=== PATIENT | female | born 1970 | race Caucasian/White ===

== ENCOUNTER → 2019-03-25 | Outpatient (CLI) | payer OTHER ==
[2019-03-25 08:15] LABS: Basophils % (A) 1 %; Eosinophils # (A) 0.3 k/uL (0-0.7); Eosinophils % (A) 5 %; HCT 38.1 % (34.0-46.0); HGB 12.6 gm/dL (11.4-16.0); Lymphocytes % (A) 27 %; MCH 30.9 pg (25.0-35.0); MCV 93.6 fL (80.0-100.0); Mean Platelet Volume 6.7; Monocytes # (A) 0.4 k/uL (0-1.0); Monocytes % (A) 6 %; Neutrophils # (A) 4.3 k/uL (1.3-7.7); Neutrophils % (A) 60 %; Platelet Count 248 k/uL (150-450); RBC 4.08 m/uL (3.80-5.40); RDW 12.6 % (11.5-15.5); WBC 7.2 k/uL (3.8-10.6)
[2019-03-25 10:19] LABS: Erythrocyte Sedimentation Rate 9 mm/hr (0-20)
[2019-03-25 11:42] LABS: African American GFR (CKD) 131.7 (60.0-200.0); Albumin 4.2 g/dL (3.80-4.90); Albumin/Globulin Ratio 1.68 (1.60-3.17); Anion Gap 10.9 mmol/L (4.00-12.00); Calcium 8.9 mg/dL (8.7-10.3); Carbon Dioxide 25.1 mmol/L (21.6-31.8); Globulin 2.5 g/dL (1.6-3.3); Potassium 4.1 mmol/L (3.5-5.5); Total Bilirubin 0.4 mg/dL (0.2-1.2); Total Protein 6.7 g/dL (6.2-8.2)
== END | disposition home or self-care (01) ==
LOC: LABWHC1 06:41
PROVIDERS: ATTEND Internal Medicine Rheumatology
DX: H20.00 Unspecified acute and subacute iridocyclitis (principal); M51.36 Other intervertebral disc degeneration, lumbar region; Z15.89 Genetic susceptibility to other disease; Z51.81 Encounter for therapeutic drug level monitoring
CPT/HCPCS: 36415; 80053; 85025; 85652

== ENCOUNTER → 2021-12-14 | Outpatient (CLI) | payer OTHER ==
--- NOTE | 2021-12-18 17:10 | MM ---
Reason for Exam: Screening (asymptomatic). Last mammogram was performed 8 year(s) and 9 month(s) ago. Patient History: Menarche at age 10. First Full-Term at age 21. Hormonal Contraceptives, starting at age 30 for 21 years. Cyst Aspiration on the Right side. Maternal aunt had breast cancer, age 50. Risk Values: Deepali 5 year model risk: 1.0%. NCI Lifetime model risk: 8.5%. Prior Study Comparison: 11/16/2004 Bilateral Diagnostic Mammogram, [facility]. 06/25/2008 Bilateral Screening Mammogram, [facility]. 02/18/2013 Bilateral Screening Mammogram, [facility]. Tissue Density: The breast tissue is heterogeneously dense. This may lower the sensitivity of mammography. Findings: Analyzed By CAD. Isodense nodularity upper-outer quadrant right breast at the middle depth is more defined. Microcalcifications posterior upper outer quadrant right breast for which magnification views are recommended. Central nodularity left breast at a middle depth is more defined. 12:00 grouped microcalcifications left breast middle depth for which magnification views are recommended. Background diffuse punctate calcifications bilaterally. Overall Assessment: Incomplete: need additional imaging evaluation, BI-RAD 0 Management: Special View Mammogram of both breasts. 1. Additional views right breast to include mag CC, mag ML, and 3-D ML views (an area of nodularity as well as grouped microcalcifications located adjacent to each other). 2. Additional views left breast to include mag CC, mag lateral, spot 3-D MLO, and 3-D lateral views. 3. Targeted ultrasound of either breast for any persisting abnormality. Electronically signed and approved by: Cesar Aaron M.D. Radiologist
== END | disposition home or self-care (01) ==
LOC: RADMAMWWP 07:12
PROVIDERS: ATTEND Family Medicine
DX: Z12.31 Encounter for screening mammogram for malignant neoplasm of breast (principal); Z80.3 Family history of malignant neoplasm of breast
CPT/HCPCS: 77067

== ENCOUNTER → 2022-01-10 | Outpatient (CLI) | payer OTHER ==
--- NOTE | 2022-01-10 11:57 | USB ---
Patient History: Menarche at age 10. First Full-Term at age 21. Hormonal Contraceptives, starting at age 30 for 21 years. Cyst Aspiration on the Right side. Maternal aunt had breast cancer, age 50. Risk Values: Deepali 5 year model risk: 1.0%. NCI Lifetime model risk: 8.5%. Prior Study Comparison: 06/25/2008 Bilateral Screening Mammogram, [facility]. 02/18/2013 Bilateral Screening Mammogram, [facility]. 12/14/2021 Bilateral MG screening mammo w CAD, [facility]. Findings: Right breast: At the 9:00 position 8 cm from the nipple there is a hypoechoic area which may has some mild posterior wall enhancement. This area measures 0.3 x 0.2 x 0.4 cm. Short-term follow-up can be performed. At the 12:00 position 3 cm from the nipple there is a hypoechoic nodule measuring 0.7 x 0.6 x 0.7 cm. Biopsy is recommended. Left breast:At the 2:00 position 7 cm from nipple a duct or cluster of cysts may be present measuring 1.0 x 0.2 x 0.5 cm. This may correspond with the mammographic abnormality. Short-term follow-up is recommended. Overall Assessment: Suspicious, BI-RAD 4 Management: Ultrasound Core Biopsy of the right breast. A clinical breast exam by your physician is recommended on an annual basis and results should be correlated with mammographic findings. Patient should continue monthly self breast exam. Short-term follow-up of additional ultrasound findings in 6 months bilateral breast. Please also see mammographic report same date. Electronically signed and approved by: Ronaldo Styles D.O. Radiologis
--- NOTE | 2022-01-10 12:09 | MM ---
Reason for Exam: Additional evaluation requested from abnormal screening. Last screening mammogram was performed less than 1 month ago. Patient History: Menarche at age 10. First Full-Term at age 21. Hormonal Contraceptives, starting at age 30 for 21 years. Cyst Aspiration on the Right side. Maternal aunt had breast cancer, age 50. Risk Values: Deepali 5 year model risk: 1.0%. NCI Lifetime model risk: 8.5%. Prior Study Comparison: 11/16/2004 Bilateral Diagnostic Mammogram, [facility]. 06/25/2008 Bilateral Screening Mammogram, [facility]. 02/18/2013 Bilateral Screening Mammogram, [facility]. 12/14/2021 Bilateral MG screening mammo w CAD, [facility]. Tissue Density: The breast tissue is heterogeneously dense. This may lower the sensitivity of mammography. Findings: Analyzed By CAD. Right breast: Magnification compression views were obtained. Standard right mediolateral view was obtained. There are grouped fine calcifications in the upper-outer aspect right breast. These are suspicious and biopsy is recommended. Vague rounded density measuring 6 mm 8 cm the nipple is in the upper right breast. Ultrasound of this area is recommended. Right breast: There is a circumscribed rounded area measuring 0.5 cm 7 cm from the nipple within the mid left mediolateral oblique view. This may be outer aspect on the craniocaudal projection. Additional workup with ultrasound is recommended. There are 2 groups of calcifications which are adjacent in the upper mid 12:00 position. Biopsy of these calcifications is recommended. Overall Assessment: Incomplete: need additional imaging evaluation, BI-RAD 0 Management: Diagnostic Breast Ultrasound of both breasts. Stereotactic Core Biopsy of both breasts. A clinical breast exam by your physician is recommended on an annual basis and results should be correlated with mammographic findings. This exam should not preclude additional follow-up of suspicious palpable abnormalities. Results were given to the patient verbally at the time of exam. Stereotactic core biopsy left breast calcifications two adjacent sites. Stereotactic core biopsy right breast calcifications. Please also see ultrasound report same date for additional ultrasound-guided core biopsy right breast recommendation. Electronically signed and approved by: Ronaldo Styles D.O. Radiologis
== END | disposition home or self-care (01) ==
LOC: RADMAMWWP 08:54
PROVIDERS: ATTEND Family Medicine
DX: R92.8 Other abnormal and inconclusive findings on diagnostic imaging of breast (principal)
CPT/HCPCS: 77062; 77066

== ENCOUNTER → 2022-02-09 | Day surgery (SDC) | payer OTHER ==
--- NOTE | 2022-02-09 12:11 | USB ---
Risk Values: Deepali 5 year model risk: 1.0%. NCI Lifetime model risk: 8.5%. Prior Study Comparison: 02/18/2013 Bilateral Screening Mammogram, [facility]. 12/14/2021 Bilateral MG screening mammo w CAD, [facility]. 01/10/2022 Bilateral MG 3D work up w/cad EDWIGE, [facility]. Pathology Description: Location: 12 o'clock, upper outer quadrant. Marker Left Behind. Needle Type: Mammotome Cores: 3 Skin Nicks: 1 Gauge: 13 The procedure of ultrasound guided core biopsy was explained to the patient. Benefits, alternatives, and risks were discussed. An informed consent was then obtained. A timeout was performed. The patient was placed in supine positioning for imaging and for the procedure. The overlying skin was prepped and draped in usual sterile fashion. Lidocaine was used as anesthetic into the skin and subcutaneous tissue up to area of concern in the right breast. A small skin rae was made with surgical scalpel. Under ultrasound guidance, a 12-gauge vacuum assisted biopsy gun device was used to obtain 3 core samples. The collapse of the structure following the first 2 samples. Consider complex cyst within the differential, please see pathology report. A biopsy clip was left in lesion. Ribbon core marker was placed. The patient tolerated the procedure well without any immediate complication. The patient was kept in the radiology department for short stay after the procedure and then discharged home in stable condition. Postprocedure mammogram: The patient was transferred to mammography for physician ordered post procedure mammogram for clip placement verification. Impression: Successful ultrasound guided core biopsy of area of concern in the right breast, full pathology results to follow. Recommendations: 1. Recommendations are pending pathology results. Pathology Results: Results pending. Electronically signed and approved by: Ronaldo Styles D.O. Radiologis
--- NOTE | 2022-02-14 10:30 | MM ---
ADDENDUM Addendum: Addended Date: 02/14/2022 Addended By: Kika Blevins Pathology Results: Benign RIGHT BREAST, 12:00, ULTRASOUND GUIDED CORE BIOPSY: Fibrocystic changes including sclerosing adenosis with calcifications and focal scar with histiocytes suggestive of ruptured cyst/cyst wall. Recommendation Follow up ultrasound of the right breast in 6 months. Risk Values: Deepali 5 year model risk: 1.0%. NCI Lifetime model risk: 8.5%. Prior Study Comparison: 02/18/2013 Bilateral Screening Mammogram, [facility]. 12/14/2021 Bilateral MG screening mammo w CAD, [facility]. 01/10/2022 Bilateral MG 3D work up w/cad EDWIGE, [facility]. Pathology Description: Location: 12 o'clock, upper outer quadrant. Marker Left Behind. Needle Type: Mammotome Cores: 3 Skin Nicks: 1 Gauge: 13 The procedure of ultrasound guided core biopsy was explained to the patient. Benefits, alternatives, and risks were discussed. An informed consent was then obtained. A timeout was performed. The patient was placed in supine positioning for imaging and for the procedure. The overlying skin was prepped and draped in usual sterile fashion. Lidocaine was used as anesthetic into the skin and subcutaneous tissue up to area of concern in the right breast. A small skin rae was made with surgical scalpel. Under ultrasound guidance, a 12-gauge vacuum assisted biopsy gun device was used to obtain 3 core samples. The collapse of the structure following the first 2 samples. Consider complex cyst within the differential, please see pathology report. A biopsy clip was left in lesion. Ribbon core marker was placed. The patient tolerated the procedure well without any immediate complication. The patient was kept in the radiology department for short stay after the procedure and then discharged home in stable condition. Postprocedure mammogram: The patient was transferred to mammography for physician ordered post procedure mammogram for clip placement verification. Impression: Successful ultrasound guided core biopsy of area of concern in the right breast, full pathology results to follow. Recommendations: 1. Recommendations are pending pathology results. SUZY
== END ==
LOC: RADUSWWP 10:19
PROVIDERS: ATTEND Surgery
DX: N60.31 Fibrosclerosis of right breast (principal); N60.21 Fibroadenosis of right breast; R92.8 Other abnormal and inconclusive findings on diagnostic imaging of breast
CPT/HCPCS: 88305; 77065; 19083; A4648

== ENCOUNTER → 2022-02-16 | Day surgery (SDC) | payer OTHER ==
[2022-02-16 12:15] VITALS: BP 155/81; PULSE 56; RESP 16; TEMP 98.1
--- NOTE | 2022-02-21 14:23 | MM ---
Risk Values: Deepali 5 year model risk: 1.2%. NCI Lifetime model risk: 10.0%. Prior Study Comparison: 12/14/2021 Bilateral MG screening mammo w CAD, [facility]. 01/10/2022 Bilateral MG 3D work up w/cad EDWIGE, [facility]. 02/09/2022 Right MG diagnostic mammo RT wo CAD, [facility]. Pathology Description: Marker Left Behind. Specimen Radiograph. Calcium Found: Yes Approach: CC FA Needle Type: Eviva Cores: 12 Skin Nicks: 1 Gauge: 9 The procedure of stereotactic guided core biopsy was explained to the patient. Benefits, alternatives, and risks were discussed. An informed consent was then obtained. A timeout was performed. Patient was placed on the mammography table. Left breast calcifications were targeted by radiology. Procedure was performed by radiology. Shortness path was superior approach. Vacuum-assisted device was utilized to obtain 6 core samples. A marker was placed. Good hemostasis was obtained. Right breast calcifications were targeted by radiology. Procedure was performed by radiology. Shortness path was superior approach. These are 2 groups which are in close approximation. A target was placed inferior to the more posterior calcifications [specimen a] which was superior to the more anterior calcifications [in specimen B] Vacuum-assisted device was utilized to obtain 6 core samples from each site. A marker was placed between these biopsy sites. Good hemostasis was obtained. The patient tolerated the procedure well without any immediate complication. The patient was kept in the radiology department for short stay after the procedure and then discharged home in stable condition. Specimen: Targeted calcifications are identified in specimen mammograms for each site sampled. Postprocedure mammogram: Post biopsy mammogram shows the clips to appear in satisfactory position relative to the targeted area of concern on the preprocedure images. Impression: 1. Successful stereotactic core biopsy left and right right breasts. Please see above discussion. Recommendations: 1. Recommendations are pending pathology results. Pathology Results: Result: High risk. A. RIGHT BREAST, CORE BIOPSY: Fibrocystic change with benign fragmented cyst, columnar cell change, apocrine metaplasia, focal adenosis and usual ductal hyperplasia. Focal microcalcification. B. LEFT BREAST, SITE A, CORE BIOPSY: Fibrocystic change with columnar cell change, focal microcalcification, usual ductal hyperplasia and focally favored pseudoangiomatous stromal hyperplasia (PASH). C. LEFT BREAST, SITE B, CORE BIOPSY: Fibrosis with fragmented benign cyst, fibrocystic change and apocrine metaplasia, columnar cell change, focal microcalcification, usual ductal hyperplasia and focal features suggestive of pseudoangiomatous stromal hyperplasia (PASH). Pathology Description: Marker Left Behind. Specimen Radiograph. Calcium Found: Yes Approach: CC FA Needle Type: Eviva Cores: 6 Skin Nicks: 1 Gauge: 9 The procedure of stereotactic guided core biopsy was explained to the patient. Benefits, alternatives, and risks were discussed. An informed consent was then obtained. A timeout was performed. Patient was placed on the mammography table. Left breast calcifications were targeted by radiology. Procedure was performed by radiology. Shortness path was superior approach. Vacuum-assisted device was utilized to obtain 6 core samples. A marker was placed. Good hemostasis was obtained. Right breast calcifications were targeted by radiology. Procedure was performed by radiology. Shortness path was superior approach. These are 2 groups which are in close approximation. A target was placed inferior to the more posterior calcifications [specimen a] which was superior to the more anterior calcifications [in specimen B] Vacuum-assisted device was utilized to obtain 6 core samples from each site. A marker was placed between these biopsy sites. Good hemostasis was obtained. The patient tolerated the procedure well without any immediate complication. The patient was kept in the radiology department for short stay after the procedure and then discharged home in stable condition. Specimen: Targeted calcifications are identified in specimen mammograms for each site sampled. Postprocedure mammogram: Post biopsy mammogram shows the clips to appear in satisfactory position relative to the targeted area of concern on the preprocedure images. Impression: 1. Successful stereotactic core biopsy left and right right breasts. Please see above discussion. Recommendations: 1. Recommendations are pending pathology results. Pathology Results: Result: Benign, Fibrocystic change. A. RIGHT BREAST, CORE BIOPSY: Fibrocystic change with benign fragmented cyst, columnar cell change, apocrine metaplasia, focal adenosis and usual ductal hyperplasia. Focal microcalcification. B. LEFT BREAST, SITE A, CORE BIOPSY: Fibrocystic change with columnar cell change, focal microcalcification, usual ductal hyperplasia and focally favored pseudoangiomatous stromal hyperplasia (PASH). C. LEFT BREAST, SITE B, CORE BIOPSY: Fibrosis with fragmented benign cyst, fibrocystic change and apocrine metaplasia, columnar cell change, focal microcalcification, usual ductal hyperplasia and focal features suggestive of pseudoangiomatous stromal hyperplasia (PASH). Overall Assessment: High risk Management: Surgical Consultation of the left breast. Diagnostic Mammogram of the right breast in 6 months. Left breast: PASH, consider open biopsy, 2 adjacent sites. Right breast concordant and negative. 6 months follow up. Electronically signed and approved by: Ronaldo Styles D.O. Radiologis
== END ==
LOC: RADMAMWWP 10:05
PROVIDERS: ATTEND Surgery
DX: N60.11 Diffuse cystic mastopathy of right breast (principal); N60.12 Diffuse cystic mastopathy of left breast; N60.81 Other benign mammary dysplasias of right breast; N60.82 Other benign mammary dysplasias of left breast; N62 Hypertrophy of breast
CPT/HCPCS: 88305; 19081; 19082; A4648; J2001

== ENCOUNTER → 2022-09-17 | Outpatient (CLI) | payer OTHER ==
--- NOTE | 2022-09-17 07:48 | MM ---
Reason for Exam: Follow-up at short interval from prior study. Last screening mammogram was performed 10 month(s) ago. Patient History: Menarche at age 10. First Full-Term at age 21. Perimenopausal. Hormonal Contraceptives, starting at age 30 for 21 years. 02/16/2022, Benign MG stereo VAD BX LT on the left side. 02/16/2022, Benign MG stereo VAD BX RT on the right side. 02/09/2022, Benign US biopsy breast VAD RT on the right side. Cyst Aspiration on the Right side. Maternal aunt had breast cancer, age 50. Risk Values: Deepali 5 year model risk: 1.6%. NCI Lifetime model risk: 12.3%. Prior Study Comparison: 12/14/2021 Bilateral MG screening mammo w CAD, [facility]. 01/10/2022 Bilateral MG 3D work up w/cad EDWIGE, [facility]. 02/09/2022 Right MG diagnostic mammo RT wo CAD, [facility]. Tissue Density: The breast tissue is heterogeneously dense. This may lower the sensitivity of mammography. Findings: Analyzed By CAD. Pattern appears complex but stable. No significant parenchymal changes evident There is a group of punctate calcifications adjacent to a recent biopsy clip in the upper-outer aspect right breast. These are unchanged from the pre-biopsy. Three-month follow-up is recommended. Overall Assessment: Probably benign, BI-RAD 3 Management: Diagnostic Mammogram of the right breast in 3 months. A negative mammogram report should not preclude additional follow up of suspicious palpable abnormalities. Patient should continue monthly self breast exam. A clinical breast exam by your physician is recommended on an annual basis and results should be correlated with mammographic findings. Electronically signed and approved by: Ronaldo Styles D.O. Radiologis
--- NOTE | 2022-09-17 08:45 | USB ---
Reason for Exam: Follow-up at short interval from prior study. Patient History: Menarche at age 10. First Full-Term at age 21. Perimenopausal. Hormonal Contraceptives, starting at age 30 for 21 years. 02/16/2022, Benign MG stereo VAD BX LT on the left side. 02/16/2022, Benign MG stereo VAD BX RT on the right side. 02/09/2022, Benign US biopsy breast VAD RT on the right side. Cyst Aspiration on the Right side. Maternal aunt had breast cancer, age 50. Risk Values: Deepali 5 year model risk: 1.6%. NCI Lifetime model risk: 12.3%. Technique: Method: Whole Breast Handheld. Prior Study Comparison: 12/14/2021 Bilateral MG screening mammo w CAD, [facility]. 01/10/2022 Bilateral MG 3D work up w/cad EDWIGE, [facility]. 02/09/2022 Right MG diagnostic mammo RT wo CAD, [facility]. Findings: The whole breast of both breasts, the axilla of both breasts and the retroareolar of both breasts were scanned. Left breast: At the 12:00 position 3 cm from the nipple is a complex cyst which may contain a septation. There is good through transmission. Right breast: At the 9:00 position right breast 8 cm nipple there is a cyst or duct present. Previous abnormality at the 12:00 position 3 cm nipple was not identified on the current examination. Overall Assessment: Probably benign, BI-RAD 3 Management: Diagnostic Breast Ultrasound of both breasts in 6 months. Diagnostic Mammogram of the right breast in 3 months. A clinical breast exam by your physician is recommended on an annual basis and results should be correlated with mammographic findings. This exam should not preclude additional follow-up of suspicious palpable abnormalities. Results were given to the patient verbally at the time of exam. Electronically signed and approved by: Ronaldo Styles D.O. Radiologis
== END | disposition home or self-care (01) ==
LOC: RADMAMWWP 06:58
PROVIDERS: ATTEND Surgery
DX: R92.8 Other abnormal and inconclusive findings on diagnostic imaging of breast (principal); Z80.3 Family history of malignant neoplasm of breast
CPT/HCPCS: 77066

== ENCOUNTER → 2022-12-24 | Outpatient (CLI) | payer OTHER ==
--- NOTE | 2022-12-24 07:19 | MM ---
Reason for Exam: Follow-up at short interval from prior study. Last screening mammogram was performed 3 month(s) ago. Patient History: Menarche at age 10. First Full-Term at age 21. Perimenopausal. Hormonal Contraceptives, starting at age 30 for 21 years. 02/16/2022, Benign MG stereo VAD BX LT on the left side. 02/16/2022, Benign MG stereo VAD BX RT on the right side. 02/09/2022, Benign US biopsy breast VAD RT on the right side. Cyst Aspiration on the Right side. Maternal aunt had breast cancer, age 50. Risk Values: Deepali 5 year model risk: 1.6%. NCI Lifetime model risk: 12.3%. Prior Study Comparison: 01/10/2022 Bilateral MG 3D work up w/cad EDWIGE, [facility]. 02/09/2022 Right MG diagnostic mammo RT wo CAD, [facility]. 09/17/2022 Bilateral MG diagnostic mammo w CAD EDWIGE, [facility]. Tissue Density: Right: The breast tissue is heterogeneously dense. This may lower the sensitivity of mammography. Findings: Analyzed By CAD. Biopsy changes noted right breast upper outer quadrant with microclip in place from prior stereotactic core biopsy. Ultrasound-guided core biopsy 1:00 position right breast. Scattered calcifications without new cluster increasing cluster seen. Overall Assessment: Benign, BI-RAD 2 Management: Screening Mammogram of both breasts in 9 months. . Results were given to the patient verbally at the time of exam. Patient should continue monthly self-breast exams. A clinical breast exam by your physician is recommended on an annual basis. This exam should not preclude additional follow-up of suspicious palpable abnormalities. Note on Deepali scores and lifetime risk: 1. A Deepali score greater than 3% is considered moderate risk. If this is the case, consider specialist referral to assess eligibility for a risk reducing agent. 2. If overall lifetime risk for the development of breast cancer is 20% or higher, the patient may qualify for future screening with alternating mammogram and breast MRI. Electronically signed and approved by: Hebert Wagner M.D. Radiologis
== END | disposition home or self-care (01) ==
LOC: RADMAMWWP 06:54
PROVIDERS: ATTEND Surgery
DX: R92.8 Other abnormal and inconclusive findings on diagnostic imaging of breast (principal); Z80.3 Family history of malignant neoplasm of breast
CPT/HCPCS: 77065

== ENCOUNTER → 2023-10-18 | Outpatient (CLI) | payer OTHER ==
--- NOTE | 2023-10-18 11:27 | XR ---
EXAMINATION TYPE: XR hand complete LT DATE OF EXAM: 10/18/2023 10:55 AM CLINICAL INDICATION:Female, 53 years old with history of W55.01XA BITTEN BY CAT, INITIAL ENCOUNTER M6 5.9 tenosynovitis; [facility] COMPARISON: None TECHNIQUE: XR hand complete LT Frontal, lateral and oblique views were obtained. FINDINGS: Normal alignment of the visualized joints. No acute osseous pathology is identified. No e vidence of soft tissue swelling. No radiopaque foreign body. IMPRESSION: 1. No acute osseous pathology. 2. No radiopaque foreign body.
== END | disposition home or self-care (01) ==
LOC: RADXRMAIN 10:25
PROVIDERS: ATTEND Family Medicine
DX: M65.842 Other synovitis and tenosynovitis, left hand (principal); W55.01XA Bitten by cat, initial encounter